=== PATIENT | female | born 1965 | race African-American/Black ===

== ENCOUNTER → 2017-08-26 | Outpatient (CLI) | payer OTHER ==
[2017-07-19 11:52] VITALS: BP 125/66
[~2017-08-26] MED LIST: ASPI-482 PO; NITR0.4T22 SL
--- NOTE | 2017-08-26 15:03 | CARD ---
APPROVED REPORT PROCEDURE The patient underwent an Exercise Stress Test using the Eamon Protocol. Blood pressure, heart rate, a nd EKG were monitored. An Echocardiogram was performed by drug abuse technician in four stages in quad fashion. At peak stress four se lected images were obtained and placed side by side with resting images for comparison. STRESS ECHO FINDINGS The resting Echocardiogram showed normal left ventricular systolic contractility with an estimated Ej ection Fraction of about 60 %. The Stress Echocardiogram showed normal augmentation of myocardial wall segments using a 16 segment m alina. Test Type: Exercise Stress Nurse/Tech: Deann Bell R.N. Test Indications: c/p Cardiac History and Allergies: see ehr Medications: see ehr Medical History: see ehr Resting ECG: SR w /inverted T waves in leads AVR,AVL, V1, V2 Resting Heart Rate: 68 bpm Resting Blood Pressure: 128/63mmHg Pretest Chest Pain: No chest pain Nurse/Tech Notes S1S2, lungs CTA Stress Symptoms No chest pain or symptoms. POST EXERCISE Reason for Termination: Reached target heart rate Target HR: Yes Max HR: 176 bpm 104% of Maximum Predicted HR: 170 bpm Exercise duration: 6:11 min:sec, 3 Stage Exercise capacity: 7METs Max Blood Pressure: 156/86mmHg Blood Pressure response to exercise: Normal blood pressure response during stress. Heart Rate response to exercise: wnl Chest Pain: No. Arrhythmia: No. ST Change: No. INTERPRETATION Stress EKG Conclusion: Baseline EKG showed sinus rhythm. No ischemic changes at peak stress. No arr hythmias. RESTING ECG Rhythm: Sinus STRESS ECG Rhythm: Sinus Tachycardia Stress EKG shows no significant changes. <Conclusion> Treadmill exercise stress echocardiogram did not show any evidence of ischemia or infarct. Normal left ventricle systolic function with ejection fraction estimated at 60%. Patient had good activity tolerance. Low risk for cardiac events.
== END | disposition home or self-care (01) ==
LOC: ECHO 12:51
PROVIDERS: ATTEND Internal Medicine Cardiovascular Disease
DX: R07.9 Chest pain, unspecified (principal); R00.0 Tachycardia, unspecified
CPT/HCPCS: 93017; 93350